=== PATIENT | male | born 1940 | race Caucasian/White ===

== ENCOUNTER 2024-05-26 14:37 | Inpatient (IN) | payer MEDICARE ==
[~2024-05-26] VITALS: Ht 182.9 cm; Wt 75.9 kg
[2024-05-26 21:21] VITALS: BP 145/85
[2024-05-27 10:16] VITALS: BP 145/85
[2024-05-27] MEDS ORDERED: MONT10TA22 PO (14:39)
[2024-05-27] MEDS ORDERED: ASPI81TA31 PO (14:39)
[2024-05-27] MEDS ORDERED: ROSU40TA PO (14:39)
[2024-05-27] MEDS ORDERED: DOCU250C15 PO (15:56)
[2024-05-27] MEDS ORDERED: MORP1VIA3 IV (15:56)
[2024-05-27] MEDS ORDERED: ACID1TAB12 PO (15:56)
[2024-05-27] MEDS ORDERED: NALO0.4D4 IJ (15:56)
[2024-05-27] MEDS ORDERED: CELE-85 PO (15:56)
[2024-05-27] MEDS ORDERED: ATOR40TA PO (15:56)
[2024-05-27] MEDS ORDERED: ZOLP5TAB8 PO (15:56)
[2024-05-27] MEDS ORDERED: MINOCYCLINE 100 MG IV (15:56)
[2024-05-27] MEDS ORDERED: MAG-65 PO (15:56)
[2024-05-27] MEDS ORDERED: ERTA1VIA4 IV (15:56)
[2024-05-27] MEDS ORDERED: GABA-532 PO (15:56)
[2024-05-27] MEDS ORDERED: ASCO500T85 PO (15:56)
[2024-05-27] MEDS ORDERED: ACET-2154 PO (15:56)
[2024-05-27] MEDS ORDERED: HYDR-4209 PO (15:56)
[2024-05-27] MEDS ORDERED: DIAZ5TAB4 PO (15:56)
[2024-05-27] MEDS ORDERED: ONDA4TAB5 GT (15:56)
[2024-05-27 20:37] VITALS: BP 126/64; TEMP 97.6; O2SAT 95
[2024-05-27] MEDS: OXYCODONE HCL 5 MG TABLET PO PRN (21:35)
[2024-05-27] MEDS ORDERED: MEROPENEM 1 G in IV NORMAL SALINE 100 ML IV SCH (22:00)
[2024-05-28] MEDS: HYDROCODONE/APAP 5-325MG TABLET PO PRN (00:56)
[2024-05-28] MEDS: ZOLPIDEM 5 MG TABLET PO PRN (00:57)
[2024-05-28] MEDS ORDERED: MORPHINE SULFATE 2 MG/1 ML DISP.SYRIN IV PRN (01:00)
[2024-05-28] MEDS ORDERED: MEROPENEM 1GM/NS 100ML IVPB **ER PYXIS ONLY IV ONE (01:21)
[2024-05-28] MEDS: MEROPENEM 1 G in IV NORMAL SALINE 100 ML IV ONE (01:23)
[2024-05-28 06:36] VITALS: BP 134/68; TEMP 97.9; O2SAT 95
[2024-05-28 08:13] VITALS: BP 125/68; TEMP 97.6; O2SAT 95
[2024-05-28] MEDS: MEROPENEM 1 G in IV NORMAL SALINE 100 ML IV SCH (08:32)
[2024-05-28] MEDS ORDERED: ONDANSETRON HCL 4 MG TABLET GT PRN (14:30)
[2024-05-28] MEDS ORDERED: HYDROCODONE/APAP 5-325MG TABLET PO PRN (14:30)
[2024-05-28] MEDS ORDERED: SIMETH PO PRN (14:30)
[2024-05-28] MEDS ORDERED: [UNRECOGNIZED DRUG - OTHER] PO PRN (14:30)
[2024-05-28] MEDS ORDERED: AL HYDROX PO PRN (14:30)
[2024-05-28] MEDS ORDERED: MAG HYDROX PO PRN (14:30)
[2024-05-28] MEDS ORDERED: ACETAMINOPHEN 325 MG TABLET-SA PATIENTS-PAIN ONLY PO PRN (14:30)
[2024-05-28] MEDS: ASPIRIN 81 MG TAB.CHEW PO SCH (15:13)
[2024-05-28] MEDS ORDERED: MAG HYDROX/AL HYDROX/SIMETH 30 ML LIQUID UDC PO PRN (15:30)
[2024-05-28] MEDS ORDERED: ACETAMINOPHEN 325 MG TABLET PO PRN (15:30)
[2024-05-28 16:12] VITALS: BP 145/57; TEMP 97.5; O2SAT 95
[2024-05-28] MEDS: ENSURE ENLIVE (VAN) 240 ML LIQUID PO SCH (16:47)
[2024-05-28] MEDS: CELECOXIB 200 MG CAPSULE PO SCH (16:47)
[2024-05-28] MEDS: GABAPENTIN 100 MG CAPSULE PO SCH (16:47)
[2024-05-28] MEDS: ACIDOPHILUS/BULGARICUS CHEW TAB PO SCH (16:48)
[2024-05-28] MEDS: DIAZEPAM 5 MG TABLET PO SCH (16:48)
[2024-05-28] MEDS: ASCORBIC ACID 500 MG TABLET PO SCH (16:48)
[2024-05-28] MEDS ORDERED: Medication Not On Formulary EA (Acidophilus/Bulgaricus (Floranex Tablet) 1 TAB) PO SCH (17:00)
[2024-05-28] MEDS ORDERED: NALOXONE HCL 0.4 MG/ML AMPUL IV PRN (19:00)
[2024-05-28 20:00] VITALS: BP 106/56; TEMP 97.8; O2SAT 95
[2024-05-28] MEDS: MONTELUKAST SODIUM 10 MG TABLET PO SCH (20:25)
[2024-05-28] MEDS: LINEZOLID 600 MG TABLET PO SCH (20:25)
[2024-05-28] MEDS: DOCUSATE SODIUM 250 MG CAPSULE PO SCH (20:26)
[2024-05-28] MEDS: ATORVASTATIN 40 MG TABLET PO SCH (20:26)
[2024-05-28] MEDS: OXYCODONE HCL 10 MG TAB.SR.12H PO SCH (20:26)
[2024-05-29] MEDS: HYDROCODONE/APAP 10-325 MG TABLET PO PRN (05:43)
[2024-05-29 06:53] VITALS: BP 115/64; TEMP 97.8; O2SAT 95
[2024-05-29 07:23] LABS: BASOPHILS % (AUTO) 0.7 % (0.0-2.0); EOSINOPHILS # (AUTO) 0.4 K/uL (0.0-0.7); EOSINOPHILS % (AUTO) 6.3 % (0.0-7.0); HEMATOCRIT 32.3 % (36.7-47.1); HEMOGLOBIN 10.9 g/dL (12.5-16.3); LYMPHOCYTES # (AUTO) 1.6 K/uL (0.8-4.8); LYMPHOCYTES % (AUTO) 23.9 % (20.5-51.5); MEAN CORPUSCULAR HEMOGLOBIN 31.1 uug (23.8-33.4); MEAN CORPUSCULAR HGB CONC 34 g/dL (32.5-36.3); MEAN CORPUSCULAR VOLUME 91.9 fL (73.0-96.2); MONOCYTES # (AUTO) 0.9 K/uL (0.1-1.30); MONOCYTES % (AUTO) 13.1 % (0.0-11.0); NEUTROPHILS # (AUTO) 3.7 K/uL (1.8-8.9); PLATELET COUNT (AUTO) 260 K/uL (152-348); RED BLOOD CELL COUNT(AUTO) 3.52 MIL/uL (4.06-5.63); RED CELL DISTRIBUTION WIDTH 13.9 % (12.1-16.2); WHITE BLOOD COUNT (AUTO) 6.6 K/uL (3.6-10.2)
[2024-05-29 07:31] LABS: DIFFERENTIAL COMMENT 1
[2024-05-29 08:00] VITALS: BP 106/54; TEMP 97.2; O2SAT 91
[2024-05-29 08:02] LABS: CALCIUM 8.5 mg/dL (8.5-10.1); CARBON DIOXIDE 30 mmol/L (21-32); CHLORIDE 107 mmol/L (98-107); CREATININE 0.5 mg/dL (0.6-1.3); GLUCOSE 91 mg/dL (74-106); POTASSIUM 4.3 mmol/L (3.5-5.1); SODIUM SERUM 142 mmol/L (136-145); UREA NITROGEN, BLOOD 19 mg/dL (7-18)
[2024-05-29] MEDS: VANCOMYCIN IV 1,000 MG in IV DEXTROSE 5% 250 ML IV ONE (08:33)
[2024-05-29 15:52] VITALS: BP 108/56; TEMP 97.6; O2SAT 96
[2024-05-29 20:30] VITALS: BP 112/60; TEMP 97.7; O2SAT 94
[2024-05-29] MEDS: MINOCYCLINE HCL IV SCH (21:36)
[2024-05-29] MEDS: NORMAL SALINE IV SCH (21:36)
[2024-05-30 06:44] VITALS: BP 111/60; TEMP 97.4; O2SAT 95
[2024-05-30 08:00] VITALS: BP 114/65; TEMP 97.2; O2SAT 97
[2024-05-30] MEDS: VANCOMYCIN IV 1,000 MG in IV DEXTROSE 5% 250 ML IV SCH (08:24)
[2024-05-30] MEDS ORDERED: NALOXONE HCL 0.4 MG/ML AMPUL IV PRN (14:30)
[2024-05-30 16:00] VITALS: BP 102/65; TEMP 98.3; O2SAT 97
[2024-05-30 20:31] VITALS: BP 104/64; TEMP 97.8; O2SAT 95
[2024-05-30] MEDS: OXYCODONE HCL 10 MG TAB.SR.12H PO SCH (21:07)
[2024-05-31 05:44] VITALS: BP 121/65; TEMP 97.6; O2SAT 95
[2024-05-31 19:47] VITALS: BP 110/59; TEMP 97.6
[2024-05-31 19:55] VITALS: BP 103/55; TEMP 97.9; O2SAT 95
[2024-06-01 05:26] VITALS: BP 105/57; TEMP 97.1; O2SAT 95
[2024-06-01 07:00] VITALS: BP 130/56; TEMP 97.6; O2SAT 91
[2024-06-01 08:39] LABS: CALCIUM 8.4 mg/dL (8.5-10.1); CARBON DIOXIDE 34 mmol/L (21-32); CHLORIDE 108 mmol/L (98-107); CREATININE 0.5 mg/dL (0.6-1.3); GLUCOSE 88 mg/dL (74-106); POTASSIUM 4.6 mmol/L (3.5-5.1); SODIUM SERUM 144 mmol/L (136-145); UREA NITROGEN, BLOOD 18 mg/dL (7-18); VANCOMYCIN,TROUGH 8.2 ug/mL (10.0-20.0)
[2024-06-01] MEDS: VANCOMYCIN IV 1,250 MG in IV DEXTROSE 5% 250 ML IV SCH (13:29)
[2024-06-01 21:17] VITALS: BP 112/59; TEMP 97.2; O2SAT 95
[2024-06-02 01:32] VITALS: O2SAT 95
[2024-06-02 07:15] VITALS: BP 105/55; TEMP 97.5; O2SAT 93
[2024-06-02 18:36] VITALS: BP 114/61; TEMP 97.3; O2SAT 91
[2024-06-02] MEDS: VANCOMYCIN IV 1,250 MG in IV DEXTROSE 5% 250 ML IV SCH (20:27)
[2024-06-02 21:41] VITALS: BP 115/58; TEMP 97.9; O2SAT 90
[2024-06-03 06:44] VITALS: BP 124/68; TEMP 97.9; O2SAT 93
[2024-06-03 08:00] VITALS: BP 123/61; TEMP 97.4; O2SAT 95
[2024-06-03 16:00] VITALS: BP 118/60; TEMP 98; O2SAT 95
[2024-06-03 19:50] VITALS: BP 131/59; TEMP 97.3; O2SAT 94
[2024-06-04 06:29] VITALS: BP 102/54; TEMP 97.4; O2SAT 94
[2024-06-04] MEDS: HYDROMORPHONE HCL 2 MG TABLET PO PRN (15:21)
[2024-06-04 17:00] VITALS: BP 118/71; TEMP 97.5; O2SAT 95
[2024-06-04 20:05] VITALS: BP 113/59; TEMP 97.8; O2SAT 95
[2024-06-05 05:21] VITALS: BP 107/68; TEMP 96.8; O2SAT 92
[2024-06-05 07:16] LABS: BASOPHILS % (AUTO) 0.4 % (0.0-2.0); EOSINOPHILS # (AUTO) 0.5 K/uL (0.0-0.7); EOSINOPHILS % (AUTO) 8.4 % (0.0-7.0); HEMATOCRIT 34.1 % (36.7-47.1); HEMOGLOBIN 11.1 g/dL (12.5-16.3); LYMPHOCYTES # (AUTO) 1.5 K/uL (0.8-4.8); LYMPHOCYTES % (AUTO) 26.8 % (20.5-51.5); MEAN CORPUSCULAR HEMOGLOBIN 30.2 uug (23.8-33.4); MEAN CORPUSCULAR HGB CONC 33 g/dL (32.5-36.3); MEAN CORPUSCULAR VOLUME 92.8 fL (73.0-96.2); MONOCYTES # (AUTO) 0.8 K/uL (0.1-1.30); MONOCYTES % (AUTO) 14.7 % (0.0-11.0); NEUTROPHILS # (AUTO) 2.7 K/uL (1.8-8.9); NEUTROPHILS % (AUTO) 49.7 % (38.5-71.5); PLATELET COUNT (AUTO) 174 K/uL (152-348); RED BLOOD CELL COUNT(AUTO) 3.67 MIL/uL (4.06-5.63); RED CELL DISTRIBUTION WIDTH 13.9 % (12.1-16.2); WHITE BLOOD COUNT (AUTO) 5.5 K/uL (3.6-10.2)
[2024-06-05 07:25] LABS: CALCIUM 8.2 mg/dL (8.5-10.1); CARBON DIOXIDE 32 mmol/L (21-32); CHLORIDE 107 mmol/L (98-107); CREATININE 0.5 mg/dL (0.6-1.3); GLUCOSE 93 mg/dL (74-106); POTASSIUM 4.6 mmol/L (3.5-5.1); SODIUM SERUM 143 mmol/L (136-145); UREA NITROGEN, BLOOD 21 mg/dL (7-18)
[2024-06-05 07:29] LABS: DIFFERENTIAL COMMENT 1
[2024-06-05 07:32] LABS: C-REACTIVE PROTEIN 1.89 mg/dL (0.00-0.30)
[2024-06-05 08:17] LABS: ERYTHROCYTE SEDIMENTATION RATE 12 MM/HR (0-15)
[2024-06-05 19:38] VITALS: BP 115/59; TEMP 99.4; O2SAT 94
[2024-06-06 06:13] VITALS: BP 118/64; TEMP 98; O2SAT 90
[2024-06-06 08:00] VITALS: BP 122/65; TEMP 97.7; O2SAT 95
[2024-06-06 16:04] VITALS: BP_SYST 106; BP_SYST 122; BP_DIAS 54; BP_DIAS 65; TEMP 97.7; TEMP 98.1; O2SAT 100; O2SAT 95
[2024-06-06 20:17] VITALS: BP 112/58; TEMP 98.4; O2SAT 96
[2024-06-07 06:31] VITALS: BP 116/62; TEMP 98.3; O2SAT 94
[2024-06-07 07:39] LABS: CHLORIDE 109 mmol/L (98-107); POTASSIUM 4.2 mmol/L (3.5-5.1); SODIUM SERUM 143 mmol/L (136-145)
[2024-06-07 07:40] LABS: CALCIUM 8.4 mg/dL (8.5-10.1); CARBON DIOXIDE 30 mmol/L (21-32); CREATININE 0.5 mg/dL (0.6-1.3); GLUCOSE 90 mg/dL (74-106); UREA NITROGEN, BLOOD 18 mg/dL (7-18); VANCOMYCIN,TROUGH 16.5 ug/mL (10.0-20.0)
[2024-06-07 08:00] VITALS: BP 127/61; TEMP 97.8; O2SAT 97
[2024-06-07 16:00] VITALS: BP 135/76; TEMP 97.6; O2SAT 97
== END 2024-06-07 17:00 | DRG 559 ==
PROVIDERS: ADMIT Physical Medicine & Rehabilitation Pain Medicine; ATTEND Physical Medicine & Rehabilitation Pain Medicine
DX: Z47.89 Encounter for other orthopedic aftercare (principal); K68.12 Psoas muscle abscess; G72.81 Critical illness myopathy; Z16.24 Resistance to multiple antibiotics; M46.26 Osteomyelitis of vertebra, lumbar region; M46.36 Infection of intervertebral disc (pyogenic), lumbar region; E78.5 Hyperlipidemia, unspecified; I10 Essential (primary) hypertension; I25.10 Atherosclerotic heart disease of native coronary artery without angina pectoris; I25.2 Old myocardial infarction; J44.9 Chronic obstructive pulmonary disease, unspecified; M46.46 Discitis, unspecified, lumbar region; B96.89 Other specified bacterial agents as the cause of diseases classified elsewhere; Z88.0 Allergy status to penicillin; Z79.2 Long term (current) use of antibiotics; Z91.018 Allergy to other foods
CPT/HCPCS: 36415; 85025; 85651; 86140; 97535-GO-CO; J2185; J2265; J3370; J7040; J7050